=== PATIENT | male | born 1955 | race Caucasian/White ===

== ENCOUNTER 2019-04-13 12:15 | Emergency (ER) | payer OTHER ==
[~2019-04-13] VITALS: Ht 167.6 cm; Wt 99.8 kg
--- NOTE | 2019-04-13 12:56 | NUR ---
AMBULATED TO ER BED 4
[2019-04-13 13:01] VITALS: BP 194/112
--- NOTE | 2019-04-13 13:13 | NUR ---
PT BIB [facility] WITH C/O LOWER BACK PAIN SINCE LAST THREE WEEKS. PAIN 5/10, INCREASES WITH ACTIVITY. HAS HIGH BP 1194/112 AT TRIAGE TIME. DECREASING AT THIS TIME 173/117. DENIES ANY CHEST PAIN, N, V ,D. DENIES ANY NOEL OR BLURRY VISION. NO DIZINESS AT THIS TIME. PER PT , HS OF HTN. NO MEDS TAKEN AT HOME FOR HTN. RESPIRATION NON-LABORED AND EVEN. PT CONNECTED TO MONITOR . ER MD TO SEE THE PT. WILL CONTINUE TO MONITOR PT. HX --HTN NKA
[2019-04-13] MEDS ORDERED: KETOROLAC 30 MG/ML VIAL IVP ONE (14:40)
[2019-04-13] MEDS ORDERED: cloNIDine 0.1 MG TAB PO ONE (14:40)
[2019-04-13 15:23] LABS: BASOPHILS % (AUTO) 0.5 % (0.0-2.0); EOSINOPHILS # (AUTO) 0.3 K/uL (0-0.4); HEMATOCRIT 46.4 % (36-52); HEMOGLOBIN 15.5 g/dL (12.0-18.0); LYMPHOCYTES # (AUTO) 1.5 K/uL (2.0-11.5); LYMPHOCYTES % (AUTO) 16.5 % (20.5-51.1); MEAN CORPUSCULAR HEMOGLOBIN 29 pg (27-31); MEAN CORPUSCULAR HGB CONC 34 g/dL (33-37); MEAN CORPUSCULAR VOLUME 86.2 fL (80-94); MONOCYTES # (AUTO) 0.6 K/uL (0.8-1.0); NEUTROPHILS # (AUTO) 6.5 K/uL (1.8-7.7); PLATELET COUNT (AUTO) 216 K/uL (140-450); RED BLOOD CELL COUNT(AUTO) 5.38 MIL/uL (4.20-6.10); RED CELL DISTRIBUTION WIDTH 14.5 % (11.6-13.7); WHITE BLOOD COUNT (AUTO) 8.9 K/uL (4.8-10.8)
--- NOTE | 2019-04-13 15:34 | NUR ---
CHECKED ON PT . ELLY 196/110. DENIES PAIN AT THIS TIME. WILL CONITNUE TO MONITOR PTS BP.
[2019-04-13 15:45] LABS: CARBON DIOXIDE 24.6 mmol/L (21-32); CREATININE 1.3 mg/dL (0.7-1.3); POTASSIUM 3.6 mmol/L (3.5-5.1)
[2019-04-13 15:49] LABS: PROTHROMBIN TIME 10.1 secs (10.8-13.4)
[2019-04-13 15:51] LABS: ALBUMIN 3.6 g/dL (3.4-5.0); TOTAL BILIRUBIN 0.3 mg/dL (0.0-1.0)
--- NOTE | 2019-04-13 15:58 | NUR ---
BP 178/88. PT RESTING COMFORTBALY IN HER BED.
[2019-04-13 16:22] LABS: D-DIMER < 100 ng/ml (0-400)
--- NOTE | 2019-04-13 18:10 | NUR ---
AWAITING DISCHARGE INFORMATION FROM
[2019-04-13 18:39] VITALS: BP 159/112
--- NOTE | 2019-04-13 18:39 | NUR ---
DPatient discharged with v/s stable. Written and verbal after care instructions given and explained. Patient alert, oriented and verbalized understanding of instructions. Ambulatory with steady gait. All questions addressed prior to discharge. ID band removed. Patient advised to follow up with PMD. Rx of NAPROSYN given. Patient educated on indication of medication including possible reaction and side effects. Opportunity to ask questions provided and answered.
[2019-04-13] MEDS ORDERED: SODIUM CHLORIDE FLUSH 10 ML SYR IVF SCH (21:00)
== END 2019-04-13 18:39 | disposition home or self-care (01) ==
LOC: MED 12:15
DX: M54.16 Radiculopathy, lumbar region (principal); I10 Essential (primary) hypertension; Z98.890 Other specified postprocedural states
CPT/HCPCS: 36415; 71045; 80053; 83880; 84484; 85025; 85379; 85610; 85730; 93005; 96374; 99284; J1885; Q0092

== ENCOUNTER 2019-05-21 12:41 | Emergency (ER) | payer OTHER ==
[~2019-05-21] VITALS: Ht 167.6 cm; Wt 99.8 kg
[2019-05-21 12:52] VITALS: BP 143/88
[2019-05-21] MEDS ORDERED: LOSA50TA66 PO (12:58)
[2019-05-21] MEDS ORDERED: METH750T5 PO (12:58)
[2019-05-21] MEDS ORDERED: DICL-388 PO (12:58)
[2019-05-21] MEDS ORDERED: CHLO25TA33 PO (12:58)
[2019-05-21] MEDS ORDERED: HYDROcodone/APAP 5/325 MG 1 TAB TAB PO ONE (13:20)
[2019-05-21 14:27] VITALS: BP 143/88
== END 2019-05-21 14:27 | disposition home or self-care (01) ==
LOC: MED 12:41
DX: M54.41 Lumbago with sciatica, right side (principal); I10 Essential (primary) hypertension; Z79.899 Other long term (current) drug therapy
CPT/HCPCS: 72110; 99283

== ENCOUNTER 2019-06-13 12:40 | Emergency (ER) | payer OTHER ==
[~2019-06-13] VITALS: Ht 167.6 cm; Wt 103.4 kg
[~2019-06-13 12:40] MED LIST: CHLO25TA33 PO; DICL-388 PO; LOSA50TA66 PO; METH750T5 PO
[2019-06-13 12:53] VITALS: BP 188/99
--- NOTE | 2019-06-13 13:49 | NUR ---
PT AMBULATED TO ER BED 12
--- NOTE | 2019-06-13 14:00 | NUR ---
64/M PRESENTS WITH FAMILY, C/O SHARP 10/10 R LOWER BACK PAIN RADIATING TO RLE, X2 MONTHS, WORSENING. DENIES INJURY/TRAUMA. PT AWAKE AND ALERT, SKIN NORMAL COLOR WARM AND DRY, RR EVEN AND UNLABORED. HX HTN, SCIATICA, BACK SURGERY RX HTN MEDS
--- NOTE | 2019-06-13 14:30 | NUR ---
RIANNA JEREZ AT BEDSIDE
[2019-06-13] MEDS ORDERED: KETOROLAC 60 MG/2 ML VIAL IM ONE (14:35)
[2019-06-13] MEDS ORDERED: HYDROcodone/APAP 7.5/325 MG 1 TAB PO ONE (14:35)
[2019-06-13] MEDS ORDERED: ONDANSETRON 4 MG ODT PO ONE (14:35)
--- NOTE | 2019-06-13 14:54 | NUR ---
TORADOL, ZOFRAN, AND NORCO ADMINISTERED. PT TOLERATED WELL
--- NOTE | 2019-06-13 15:24 | NUR ---
PTS BP IS 187/101. PT HYPERTENSIVE UPON ARRIVAL TO ER. STATES HE HAS A HX OF HTN AND TAKES HIS MEDICATIONS ACCORDINGLY. STATES HE HAS NO S/S OF HTN AT THIS TIME
--- NOTE | 2019-06-13 15:26 | NUR ---
PT STATES PAIN IS A 6/10 AT THIS TIME. SOME RELIEF WITH PAIN MEDICATIONS
--- NOTE | 2019-06-13 16:50 | NUR ---
BP 192/101, HR 66. PT'S BP IN TRIAGE WAS 188/99. PT DENIES CP, SOB, N/V, HEADACHE OR NEURO CHANGES. JEREZ PA MADE AWARE. PER ER PA, NO NEED FOR ANTIHYPERTENSIVE MEDS AT THIS TIME, PT IS OK FOR DISCHARGE.
[2019-06-13 16:52] VITALS: BP 192/101
--- NOTE | 2019-06-13 16:52 | NUR ---
Patient discharged with v/s stable. Written and verbal after care instructions given and explained. Patient alert, oriented and verbalized understanding of instructions. Ambulatory with steady gait. All questions addressed prior to discharge. ID band removed. Patient advised to follow up with PMD. Rx of IBUPROFEN, MEDROL, NORCO given. Patient educated on indication of medication including possible reaction and side effects. Opportunity to ask questions provided and answered.
== END 2019-06-13 16:52 | disposition home or self-care (01) ==
LOC: MED 12:40
DX: M54.5 Low back pain (principal); G89.29 Other chronic pain; I10 Essential (primary) hypertension; Z98.890 Other specified postprocedural states; Z79.899 Other long term (current) drug therapy
CPT/HCPCS: 96372; 99283; J1885; Q0162